=== PATIENT | male | born 1975 | race Caucasian/White ===

== ENCOUNTER → 2016-03-11 | Outpatient (CLI) | payer OTHER ==
[2016-03-11 21:16] LABS: ALT 57 U/L (21-72); AST 33 U/L (17-59); Alkaline Phosphatase 71 U/L (38-126); Anion Gap 17 mmol/L; Blood Urea Nitrogen 23 mg/dL (9-20); Calcium 10.1 mg/dL (8.4-10.2); Carbon Dioxide 25 mmol/L (22-30); Chloride 103 mmol/L (98-107); Cholesterol 228 mg/dL (<200); Glucose 62 mg/dL (74-99); HDL Cholesterol 47 mg/dL (40-60); Non-African American GFR(MDRD) >60 (>60 ml/min/1.73 sqM); Potassium 3.9 mmol/L (3.5-5.1); Sodium 145 mmol/L (137-145); Total Bilirubin 1.1 mg/dL (0.2-1.3); Triglycerides 123 mg/dL (<150)
== END | disposition home or self-care (01) ==
LOC: MMGSC 17:32
PROVIDERS: ATTEND Family Medicine
DX: I10 Essential (primary) hypertension (principal); E78.00 Pure hypercholesterolemia, unspecified
CPT/HCPCS: 36415; 80053; 80061; 84403

== ENCOUNTER → 2016-09-12 | Outpatient (CLI) | payer OTHER | END | disposition home or self-care (01) | LOC: MMGSC 16:19 | PROVIDERS: ATTEND Family Medicine | DX: L03.113 Cellulitis of right upper limb (principal) | CPT/HCPCS: 87070; 87075; 87205 ==

== ENCOUNTER → 2018-09-27 | Outpatient (CLI) | payer BC ==
--- NOTE | 2018-09-27 23:25 | CONS ---
CONSULTATION DATE OF SERVICE: 09/27/2018 43-year-old gentleman who has been evaluated in the sleep center for possible obstructive sleep apnea-hypopnea syndrome. HISTORY OF PRESENT ILLNESS/SLEEP WAKE EVALUATION: SLEEP SCHEDULE: Patient usual sleep schedule from 10 p.m. to 6 a.m. and on weekends from around 11 p.m. until 8:30/9 am. FALLING ASLEEP: Usually no problems with falling asleep, although he has TV set in bedroom. DURING SLEEP: He prefers to sleep on the stomach position. He snores according to his , and his snoring became worse for the last years. DURING THE DAY/SLEEP WAKE EVALUATION: In the morning, he wakes up tired, has difficulties to pay attention, has problems with concentration, irritability, depression and anxiety. At night he wakes up usually once. No history of sleep paralysis or cataplexy, but he has several episodes of possible hypnagogical hallucinations. [place] Sleepiness Scale is 7. PAST MEDICAL HISTORY: Positive for hypertension, hyperlipidemia, acid reflux, irritable bowel syndrome. PAST SURGICAL HISTORY: [place] tooth removed. MEDICATIONS: Crestor, Bentyl, Toprol, omeprazole, fish oil, vitamin A and D supplement. SOCIAL HISTORY: Negative for smoking. Alcohol consumption occasional. FAMILY HISTORY: Positive for heart problems, hyperlipidemia, arthritis, and diabetes and snoring. REVIEW OF SYSTEMS: Feeling fatigued and tired during the day. He has snoring, awakenings from sleep. PHYSICAL EXAM: gentleman without distress. BP 128/77, HR 72, RR 16, height 5 feet 10-1/2 inches, weight 198 pounds. Body mass index 20.0, temperature 97.5, oxygen saturation at room air 96%. HEENT: Oropharynx extremely low position of soft palate. Mallampati 4. Neck 15 inches in circumference. Neck Supple, no JVD. Thyroid is not palpable. LUNGS: Slight restriction of nasal breathing on the right side. HEART S1, S2 regular. No murmurs, gallops, or rubs. ABDOMEN Soft and nontender. Bowel sounds are present. No organomegaly appreciated. EXTREMITIES No clubbing or cyanosis. SPA EXPERIENCE COORDINATOR Awake, alert, and oriented X3. Cranial nerves 2 to 7 intact. There is no fasciculation or atrophy. noted. No focal deficits observed. IMPRESSION: 1. Loud snoring, awakenings from sleep, extremely low position of soft palate. Feeling fatigued during the day. Obstructive sleep apnea-hypopnea syndrome. 2. Hypertension. 3. Hyperlipidemia. 4. Acid reflux. 5. Irritable bowel syndrome. PLAN: 1. Home sleep apnea test for checking the patient breathing during sleep. 2. Polysomnography for evaluation of patient's breathing during sleep. 3. CPAP/BiPAP titration if sleep study confirms obstructive sleep apnea-hypopnea syndrome. 4. Preferable position during sleep on the side. 5. No driving if patient feels any sleepiness. 6. I will see patient for follow up visit to explain results of testing and following plan. Thank you very much for referring this patient for consultation. Sincerely, Ivan Reyes MD, PhD, FAASM Diplomat of [place] [employer] [employer] Software Project Lead of [facility] [place] MMODL / ALYSSAN: [id number] /
== END | disposition home or self-care (01) ==
LOC: SLEEP 14:30
PROVIDERS: ATTEND Internal Medicine
DX: G47.33 Obstructive sleep apnea (adult) (pediatric) (principal); I10 Essential (primary) hypertension; E78.5 Hyperlipidemia, unspecified; K21.9 Gastro-esophageal reflux disease without esophagitis; K58.9 Irritable bowel syndrome, unspecified; Z79.899 Other long term (current) drug therapy
CPT/HCPCS: 99211

== ENCOUNTER → 2018-10-25 | Outpatient (CLI) | payer BC ==
--- NOTE | 2018-10-25 20:28 | PN ---
PROGRESS NOTE DATE OF SERVICE: 10/25/2018 This patient is a 43-year-old gentleman who has come to the Sleep Center to discuss results of his home sleep study and the following plan. I discussed results of the sleep study with the patient and his family in detail. Home sleep study showed apnea- hypopnea index 14.2 with oxygen desaturation to 83%. The patient has a history of obstructive sleep apnea. 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 [place] Sleepiness Scale is 10, which indicates some sleepiness. MEDICATIONS: 1. Bentyl. 2. Omeprazole. 3. Crestor. 4. [id number]-hdvgxzp medications. PHYSICAL EXAMINATION: GENERAL: A pleasant patient in no distress. VITAL SIGNS: BP 156/87, HR 65, RR 16, weight 194.8 pounds, temperature 98.2, oxygen saturation at room air 97%. HEENT: PERRLA, EOMI. Evaluation of oropharynx showed tongue protrudes midline. Low position of soft palate. Mallampati IV. NECK: Supple. No JVD. Thyroid is not palpable. LUNGS: Clear to percussion and to auscultation. Good air exchange. No wheezing or rhonchi. HEART: S1, S2 regular. No murmurs, gallops or rubs. ABDOMEN: Slightly obese. EXTREMITIES: No clubbing or cyanosis. COMM[employer]CIAL AIRPLANE PILOT: Awake, alert, and oriented X3. Cranial nerves 2 to 7 intact. There is no fasciculation or atrophy. noted. No focal deficits observed. IMPRESSION: 1. Obstructive sleep apnea-hypopnea syndrome. 2. Hypertension. 3. Hyperlipidemia. 4. Acid reflux. PLAN: 1. The patient will be started on treatment with Auto PAP with nasal pillow mask. 2. Sleep hygiene with regular time in bed for 7-1/2 to 8 hours. 3. Precautions related to driving. No driving if feeling any sleepiness. 4. Losing weight. 5. Follow-up visit in one month after the patient starts on treatment with CPAP to evaluate clinical response on treatment, compliance with treatment and to make any necessary adjustments related to mask fitting, pressure or humidification. Thank you very much for allowing me to participate in the management of your patient. Sincerely, Ivan Reyes MD, PhD, FAASM Diplomat of [place] [employer] [employer] Switch Foreman [facility] [place] MMODL / IJN: [id number] /
== END | disposition home or self-care (01) ==
LOC: SLEEP 16:35
PROVIDERS: ATTEND Internal Medicine
DX: G47.33 Obstructive sleep apnea (adult) (pediatric) (principal); I10 Essential (primary) hypertension; E78.5 Hyperlipidemia, unspecified; K21.9 Gastro-esophageal reflux disease without esophagitis; Z79.899 Other long term (current) drug therapy

== ENCOUNTER 2019-04-17 09:21 | Day surgery (SDC) | payer BC ==
[2019-04-15 17:43] VITALS: BMI 27.9
[~2019-04-17 09:21] MED LIST: DEXAMETHASONE SOD PHOSPHATE 10 MG/ML 1 ML VIAL IV ONE; DEXAMETHASONE SOD PHOSPHATE 4 MG/ML 1 ML VIAL IV ONE; FAMOTIDINE 20 MG/2 ML VIAL IV ONE; HYDROmorphone 0.5 MG/0.5 ML SYRINGE IVP PRN; LACTATED RINGERS 1,000 ML IV SCH; LIDOCAINE 1% 20 ML VIAL (10MG/ML) FOR IV START INTRADERMA PRN; ONDANSETRON 4 MG/2 ML VIAL IVP ONE
[2019-04-17] MEDS: OXYMETAZOLINE 0.05% NASL SPRAY 1 SPRAY BOTTLE NASAL ONE ×5 (09:54→10:14)
[2019-04-17 09:55] VITALS: RESP 16
[2019-04-17] MEDS ORDERED: PROPOFOL 10 MG/ML 20 ML VIAL IV ONE (10:51)
[2019-04-17] MEDS ORDERED: GLYCOPYRROLATE 0.2 MG/ML 2 ML VIAL ONE (10:51)
[2019-04-17] MEDS ORDERED: ePHEDrine SULFATE/0.9% NACL/PF 50 MG/5 ML SYRINGE IV ONE (10:51)
[2019-04-17] MEDS ORDERED: MIDAZOLAM 2 MG/2 ML VIAL ONE (10:51)
[2019-04-17] MEDS ORDERED: fentaNYL (PF) 50 MCG/ML 2 ML AMP ONE (10:51)
[2019-04-17] MEDS ORDERED: ROCURONIUM BROMIDE 10 MG/ML 5 ML VIAL IV ONE (10:51)
[2019-04-17] MEDS ORDERED: NEOSTIGMINE 1 MG/ML 10 ML VIAL ONE (10:51)
[2019-04-17] MEDS ORDERED: LIDOCAINE 1% INJ 10MG/ML (20 ML MDV) ONE (10:51)
[2019-04-17] MEDS ORDERED: LIDOCAINE 2% INJ 20 MG/ML SQ ONE ×2 (11:08)
[2019-04-17] MEDS ORDERED: BACITRACIN OINT 1 EACH PACKET TOPICAL ONE (11:16)
--- NOTE | 2019-04-17 11:31 | P.OP ---
Date of Procedure: 04/17/19 Preoperative Diagnosis: Deviated nasal septum Inferior turbinate hypertrophy Postoperative Diagnosis: Same Procedure(s) Performed: The placenta Outfracture and submucous resection of the inferior turbinates Anesthesia: MARÍAA Surgeon: Barney Dillard Estimated Blood Loss (ml): 2 Pathology: other (Nasal septal bone and cartilage) Condition: stable Disposition: PACU Indications for Procedure: Is a 44-year-old white male whose had difficulties with chronic nasal airway obstruction bilaterally but left greater than right without improvement with medical management Operative Findings: Nasal septum deviated left with inferior turbinate hypertrophy bilaterally Description of Procedure: DESCRIPTION OF PROCEDURE: The patient was brought to the operative suite, placed in the supine position. The patient underwent induction of general anesthesia with oral endotracheal intubation without difficulty. The patient was prepped and draped in the usual aseptic fashion. 1% lidocaine with 1:100,000 epinephrine was infused submucosally on both sides of the nasal septum. While this was taking vasoconstrictive effect, the inferior turbinates were infractured with a Mil[place] elevator. Partial submucous resection of the inferior turbinates was performed with Coblation device ablating a portion of the submucosal soft tissue. The inferior turbinates were then outfractured with a Milbridge elevator. A left hemitransfixion incision was then made through the mucoperichondrial. Mucoperiosteal flap on the left elevated. Bony cartilaginous junction was disarticulated and mucoperiosteal flap on the right was elevated. Bony nasoseptal deformity were removed with Libertad forceps and an inferior cartilaginous strip was removed, leaving a full 1.5 cm caudal strut. Checking intranasally, this corrected the nasal septal deformities and the h emitransfixion incision was closed with running 4-0 chromic suture. The bilateral Zimmer airway splints coated in bacitracin ointment were placed in the nasal cavities and sutured transseptally with 4-0 nylon suture. The patient was then suctioned in an orogastric fashion. The patient was allowed to emerge from general anesthesia, having tolerated the procedure well and was extubated in the operating suite, transferred to postoperative recovery area in satisfactory condition.
[2019-04-17 11:51] VITALS: TEMP 97.1
[2019-04-17 13:35] VITALS: BP 119/73; PULSE 74
== END 2019-04-17 13:39 | disposition home or self-care (01) ==
LOC: OR 09:21
PROVIDERS: ATTEND Otolaryngology
DX: J34.2 Deviated nasal septum (principal); J34.3 Hypertrophy of nasal turbinates; K21.9 Gastro-esophageal reflux disease without esophagitis; I10 Essential (primary) hypertension; E78.5 Hyperlipidemia, unspecified; J35.1 Hypertrophy of tonsils; G47.33 Obstructive sleep apnea (adult) (pediatric); E78.00 Pure hypercholesterolemia, unspecified; F41.9 Anxiety disorder, unspecified; F32.9 Major depressive disorder, single episode, unspecified; Z87.19 Personal history of other diseases of the digestive system; Z79.899 Other long term (current) drug therapy; Z82.49 Family history of ischemic heart disease and other diseases of the circulatory system; Z83.3 Family history of diabetes mellitus; Z83.49 Family history of other endocrine, nutritional and metabolic diseases; Z99.89 Dependence on other enabling machines and devices
CPT/HCPCS: 88300; 30520; 30140; J2001 ×2; J2250; J1100; J2710; J2405; J0690; J3010; J2704

== ENCOUNTER → 2020-01-23 | Outpatient (CLI) | payer BC ==
--- NOTE | 2020-01-24 02:48 | SFUN ---
SLEEP CENTER FOLLOW UP NOTE DATE OF SERVICE: 01/23/2020 This 44-year-old gentleman has been followed in the Sleep Center for treatment of obstructive sleep apnea-hypopnea syndrome. Last time I saw patient in October of 2018. At that time, he was recommended treatment with CPAP for obstructive sleep apnea- hypopnea syndrome documented by home sleep apnea test. At that time, apnea-hypopnea index was 14.2. Today the patient came for follow-up visit. He stopped using machine about one year ago. He underwent nasal surgery for nasal septum deviation by Dr. iDllard and presently patient feels that he sleeps better and believes he may not need to use CPAP. His [place] Sleepiness Scale today is 4. 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 MEDICATIONS: Bentyl 10 mg once a day, omeprazole 20 mg once a day, Crestor 10 mg once a day, Toprol 50 mg once a day, Vitamin D supplement. PHYSICAL EXAMINATION: GENERAL: Patient in no distress. VITAL SIGNS: BP 155/98 on the right arm and 150/92 on the left arm, HR 76, RR 15, height 5 feet 10-1/2 inches, weight 205 pounds, which is about 10 pounds more than during the previous visit, BMI 28.9, temperature 98.4, oxygen saturation at room air 94%. HEENT: PERRLA. EOMI. Oropharynx low position of soft palate, Mallampati 4. NECK: Supple, no JVD. Thyroid is not palpable. LUNGS: Clear to percussion and to auscultation. Good air exchange. No wheezing or rhonchi. HEART: S1, S2 regular. No murmurs, gallops, or rubs. ABDOMEN: Soft and nontender. Bowel sounds are present. No organomegaly appreciated. EXTREMITIES: No clubbing or cyanosis. WIRELESS NETWORK ENGINEER: Awake, alert, and oriented X3. Cranial nerves 2 to 7 intact. There is no fasciculation or atrophy. noted. No focal deficits observed. IMPRESSION: 1. History of obstructive sleep apnea-hypopnea syndrome by results of home sleep study in 2018. At that time, apnea-hypopnea index was 14.2. 2. Status post surgery for nasal septum deviation in April of 2019. After surgery, patient feels that he breathes better during the sleep. 3. Hypertension, patient on 2 medications. Blood pressure increased today in the office. 4. Hyperlipidemia. 5. Acid reflux. 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 PLAN: 1. We will repeat a sleep study for evaluation of patient's breathing during the sleep after nasal surgery. 2. Following plan after reviewing results of sleep study. 3. Sleep hygiene with regular time in bed for at least 7-1/2 to 8 hours. 4. Precautions related to driving. No driving if feels any sleepiness. Patient promised to follow recommendations. He is aware of both civil and criminal liability for unsafe driving. Thank you very much for allowing me to participate in management of your patient. Sincerely, Ivan Reyes MD, PhD, FAASM Diplomat of [place] [employer] [place] [employer] [place] Machine Operator of [facility] [place] MICHAEL / ZACHARY: [id number] /
== END | disposition home or self-care (01) ==
LOC: SLEEP 15:37
PROVIDERS: ATTEND Internal Medicine
DX: G47.33 Obstructive sleep apnea (adult) (pediatric) (principal); I10 Essential (primary) hypertension; E78.5 Hyperlipidemia, unspecified; K21.9 Gastro-esophageal reflux disease without esophagitis; Z99.89 Dependence on other enabling machines and devices; Z98.890 Other specified postprocedural states

== ENCOUNTER → 2021-04-27 | Outpatient (CLI) | payer BC ==
--- NOTE | 2021-04-27 18:22 | US ---
EXAMINATION TYPE: US mass soft tissue chest/back DATE OF EXAM: 04/27/2021 COMPARISON: NONE CLINICAL HISTORY: 46-year-old male R22.2 LOCALIZED SWELLING, MASS AND LUMP, TRUNK. Palpable lump mid back x couple weeks TECHNIQUE: Targeted ultrasound examination at the site of patient's palpable abnormality right parame rose mid back. FINDINGS: Armhole Sewer notes: Mid back to the right of midline: no abnormalities seen at patient's area of ry rn IMPRESSION: No discrete sonographic abnormality of the superficial tissues along the patient's palpable site, rig ht paramedian posterior mid back. Clinical surveillance recommended. If any enlarging lesions, repeat ultrasound or consideration to cross-sectional evaluation.
== END | disposition home or self-care (01) ==
LOC: RADUSWWP 15:04
PROVIDERS: ATTEND Family Medicine
DX: R22.2 Localized swelling, mass and lump, trunk (principal)

== ENCOUNTER → 2021-11-19 | Outpatient (CLI) | payer BC ==
--- NOTE | 2021-11-20 08:05 | US ---
EXAMINATION TYPE: US scrotum with doppler. DATE OF EXAM: 11/19/2021 COMPARISON: NONE CLINICAL HISTORY: 46-year-old male with left groin pain R10.30. TECHNIQUE: Grayscale and color Doppler Duplex imaging performed of the scrotum. FINDINGS: EXAM MEASUREMENTS: TESTICLES: Right Testicle: 4.5 x 2.1 x 3.1 cm Left Testicle: 4.8 x 2.0 x 2.7 cm There is homogeneous appearance of both testicles without hyperemia. Satisfactory arterial and venous flow is present bilaterally. EPIDIDYMIS HEAD: Right Epididymis: 0.8 cm Left Epididymis: 0.9 cm with a 3mm cyst Presence of hydroceles: no Presence of varicoceles: no IMPRESSION: Unremarkable sonographic examination of the scrotum.
== END | disposition home or self-care (01) ==
LOC: RADUSWWP 16:47
PROVIDERS: ATTEND Family Medicine
DX: R10.30 Lower abdominal pain, unspecified (principal)
CPT/HCPCS: 76870; 93975